=== PATIENT | female | born 1945 | race African-American/Black ===

== ENCOUNTER 2016-07-31 22:38 | Emergency (ER) | payer MEDICARE ==
[~2016-07-31] VITALS: Ht 160 cm; Wt 57.2 kg
[2016-07-31 22:38] VITALS: BP_SYST 169
[2016-07-31] MEDS ORDERED: NACL 0.9% 1,000 ML IV ONE (22:46)
[2016-07-31] MEDS ORDERED: MAGNESIUM SULFATE 50 ML IV ONE (23:00)
[2016-07-31] MEDS ORDERED: methylPREDNISolone SOD SUCC/PF 62.5 MG/ML VIAL IVP ONE (23:00)
[2016-07-31] MEDS ORDERED: IPRATROPIUM BROM 0.5 MG/2.5 ML VIAL.NEB (ATROVENT) IH ONE (23:00)
[2016-07-31] MEDS ORDERED: LevALBUTEROL HCL 1.25 MG/0.5 ML *CONC.* VIAL.NEB (XOPENEX CONC.) INH ONE ×2 (23:00→23:30)
[2016-07-31 23:15] LABS: MEAN CORPUSCULAR HEMOGLOBIN 33 pg (27-31); RED CELL DISTRIBUTION WIDTH 14.7 % (9.0-15.0)
[2016-07-31 23:20] LABS: CALCIUM 10.4 mg/dL (8.4-11.0); CREATININE 1.13 mg/dL (0.55-1.30); POTASSIUM 3.7 mmol/L (3.5-5.1)
[2016-07-31 23:32] LABS: HEMATOCRIT 42.7 % (36-48); HEMOGLOBIN 13.5 g/dL (12.0-16.0); MEAN CORPUSCULAR HGB CONC 32 % (32-36); MEAN CORPUSCULAR VOLUME 103 fL (79.0-98.0); PLATELET COUNT (AUTO) 628 K/uL (130-430); RED BLOOD CELL COUNT(AUTO) 4.14 MIL/uL (4.2-6.2); WHITE BLOOD COUNT (AUTO) 16.9 K/uL (4.8-10.8)
[2016-07-31 23:38] LABS: ALBUMIN 4.1 g/dL (3.4-4.8)
[2016-07-31 23:57] LABS: BASOPHILS % (MANUAL) 0 % (0-2); EOSINOPHILS % (MANUAL) 2 % (0-7); LYMPHOCYTES % (MANUAL) 22 % (20-46); MONOCYTES % (MANUAL) 2 % (0-11)
[2016-08-01] MEDS ORDERED: ASPIRIN 81 MG TAB.CHEW PO ONE (00:15)
[2016-08-01 01:10] LABS: BILIRUBIN,URINE NEGATIVE (NEGATIVE); BLOOD, URINE NEGATIVE (NEGATIVE); CLARITY/URINE CLEAR (CLEAR); COLOR,URINE YELLOW (YELLOW); GLUCOSE,URINE NEGATIVE (NEGATIVE); KETONES,URINE 1+ (NEGATIVE); LEUKOCYTE ESTERASE ,URINE NEGATIVE (NEGATIVE); NITRITE, URINE NEGATIVE (NEGATIVE); PH,URINE 6.5 (5.0-8.0); PROTEIN URINE TRACE (NEGATIVE); UROBILINOGEN,URINE 0.2 (0.2-1.0)
[2016-08-01 01:25] LABS: BACTERIA,URINE FEW /HPF (None Seen); RBC,URINE 0-3 /HPF (0-3); WBC,URINE 0-3 /HPF (0-3)
[2016-08-01 01:26] LABS: MUCUS,URINE None Seen /LPF (None Seen)
[2016-08-01] MEDS ORDERED: cefTRIAXone 1 GM IVPB PREMIX 50 ML IV ONE (02:00)
[2016-08-01] MEDS ORDERED: AZITHROMYCIN 500 MG in NS 250 ML IV ONE (02:00)
[2016-08-01] MEDS ORDERED: AZITHROMYCIN 500 MG/VIAL (ZITHROMAX) IV ONE (02:10)
[2016-08-01] MEDS ORDERED: LevALBUTEROL HCL 1.25 MG/0.5 ML *CONC.* VIAL.NEB (XOPENEX CONC.) INH ONE (05:45)
[2016-08-01] MEDS ORDERED: IPRATROPIUM BROM 0.5 MG/2.5 ML VIAL.NEB (ATROVENT) IH ONE (05:45)
[2016-08-01 06:00] VITALS: BP_SYST 128
== END 2016-08-01 06:00 | disposition short-term general hospital (02) ==
LOC: SED 22:38
DX: J44.1 Chronic obstructive pulmonary disease with (acute) exacerbation (principal); I10 Essential (primary) hypertension; R74.0 Nonspecific elevation of levels of transaminase and lactic acid dehydrogenase [LDH]; Z88.6 Allergy status to analgesic agent; Z88.8 Allergy status to other drugs, medicaments and biological substances
CPT/HCPCS: 36415; 71010; 80053; 81000; 83605; 84484; 85007; 85027; 85610; 85730; 87040; 93005; 94640 ×2; 96365; 96367; 96368; 96375; 99285; J0456; J0696; J2930; J3475; J7030; J7050